=== PATIENT | female | born 1995 | race Caucasian/White ===

== ENCOUNTER 2017-10-21 17:22 | Inpatient (IN) | payer OTHER ==
[~2017-10-21] VITALS: Ht 157.5 cm; Wt 55.3 kg
[2017-10-21] MEDS ORDERED: PRENATAL 19 TA1 EACH PO (19:06)
[2017-10-21] MEDS ORDERED: TYLENOL EXTRA500 MG PO (19:11)
[2017-10-22] MEDS ORDERED: TYLENOL EXTRA500 MG PO (17:56)
[2017-10-23] MEDS ORDERED: SIDEROL TABLET1 EACH PO (15:47)
== END 2017-10-23 15:45 | DRG 781 ==
LOC: EDBD 17:22 → OBS/DEL 17:22 → LDR 10-22 17:09
PROC: BT43ZZZ Ultrasonography of Bilateral Kidneys (ICD-10-PCS; 2017-10-21)
PROC: BY4CZZZ Ultrasonography of Second Trimester, Single Fetus (ICD-10-PCS; 2017-10-21)
PROC: BU46ZZZ Ultrasonography of Uterus (ICD-10-PCS; 2017-10-21)
PROC: 4A1HXCZ Monitoring of Products of Conception, Cardiac Rate, External Approach (ICD-10-PCS; principal; 2017-10-22)
DX: O99.89 Other specified diseases and conditions complicating pregnancy, childbirth and the puerperium (principal); N13.2 Hydronephrosis with renal and ureteral calculous obstruction; O23.42 Unspecified infection of urinary tract in pregnancy, second trimester; Z3A.22 22 weeks gestation of pregnancy

== ENCOUNTER → 2017-10-21 | Emergency (ER) | payer OTHER ==
[~2017-10-21] VITALS: Ht 157.5 cm; Wt 56.7 kg
[~2017-10-21] MED LIST: PRENATAL 19 TA1 EACH PO; SIDEROL TABLET1 EACH PO; TYLENOL EXTRA500 MG PO
== END | disposition left against medical advice (07) ==
LOC: ER 14:28 → EDBD 15:13 → ER 15:13
DX: Z53.20 Procedure and treatment not carried out because of patient's decision for unspecified reasons (principal)

== ENCOUNTER 2018-02-28 15:15 | Inpatient (IN) | payer OTHER ==
[~2018-02-28] VITALS: Ht 160 cm; Wt 68.9 kg
== END 2018-03-03 12:19 | DRG 775 ==
LOC: OB/GYN 15:15 → LDR 15:15 → OB/GYN 03-01 13:14
PROC: 10E0XZZ Delivery of Products of Conception, External Approach (ICD-10-PCS; principal; 2018-03-01)
PROC: 3E0P7VZ Introduction of Hormone into Female Reproductive, Via Natural or Artificial Opening (ICD-10-PCS; 2018-03-01)
PROC: 3E033VJ Introduction of Other Hormone into Peripheral Vein, Percutaneous Approach (ICD-10-PCS; 2018-03-01)
PROC: 4A1HXCZ Monitoring of Products of Conception, Cardiac Rate, External Approach (ICD-10-PCS; 2018-03-01)
DX: O48.0 Post-term pregnancy (principal); Z3A.40 40 weeks gestation of pregnancy; Z37.0 Single live birth